=== PATIENT | female | born 1945 | race Caucasian/White ===

== ENCOUNTER 2019-07-23 09:09 | Emergency (ER) | payer OTHER ==
[~2019-07-23] VITALS: Ht 154.9 cm; Wt 86.2 kg
[2019-07-23] MEDS ORDERED: PREDNISONE 10 M10 M1 PO (09:49)
[2019-07-23] MEDS ORDERED: ZOVIRAX800 MG PO (09:49)
[2019-07-23] MEDS ORDERED: NORCO 5-325 TA1 EAC1 PO (09:49)
[2019-07-23 10:05] VITALS: BP 136/75
== END 2019-07-23 10:06 | disposition home or self-care (01) ==
LOC: M.ERS 09:09
DX: B02.9 Zoster without complications (principal); I25.10 Atherosclerotic heart disease of native coronary artery without angina pectoris; Z95.2 Presence of prosthetic heart valve; Z88.0 Allergy status to penicillin; Z88.5 Allergy status to narcotic agent; Z88.2 Allergy status to sulfonamides